=== PATIENT | male | born 1980 | race Caucasian/White ===

== ENCOUNTER 2023-06-26 08:24 | Emergency (ER) | payer OTHER ==
[2023-06-26 09:43] LABS: CORONAVIRUS COVID-19 NAA NEGATIVE (NEGATIVE); INFLUENZA A NAA NEGATIVE (NEGATIVE); INFLUENZA B NAA NEGATIVE (NEGATIVE); RESPIRATORY SYNCYTIAL VIR NAA NEGATIVE (NEGATIVE)
[2023-06-26] MEDS: Dexamethasone 10 MG/ML SDV PO ONE (09:59)
== END 2023-06-26 10:17 | disposition home or self-care (01) ==
LOC: MW.ED 08:24
DX: J02.8 Acute pharyngitis due to other specified organisms (principal); Z88.8 Allergy status to other drugs, medicaments and biological substances
CPT/HCPCS: 0241U; 87651; 99283; J8540

== ENCOUNTER 2024-05-09 20:40 | Emergency (ER) | payer OTHER ==
[2024-05-09] MEDS ORDERED: Sodium Chloride 0.9% 20 ML SDV IV PRN (21:16)
[2024-05-09] MEDS: Ketorolac 30 MG/ML SDV IVPUSH ONE (21:29)
[2024-05-09] MEDS: Sodium Chloride 0.9% 10 ML Syringe FLUSH PRN (21:31)
[2024-05-09] MEDS: Sodium Chloride 0.9% 2.5 ML Syringe FLUSH PRN (21:31)
[2024-05-09 21:36] LABS: HEMATOCRIT 42.3 % (42.0-52.0); HEMOGLOBIN 14.8 g/dL (14.0-18.0); MEAN CORPUSCULAR HEMOGLOBIN 30.5 pg (28.0-32.0); MEAN PLATELET VOLUME 9.9 fL (9.4-12.4); PLATELET COUNT,PLT 270 K/uL (150-400); RED BLOOD CELL COUNT 4.86 M/uL (4.52-5.90); WHITE BLOOD CELL COUNT,WBC 15.72 K/uL (3.9-11.3)
[2024-05-09 21:51] LABS: LYMPHOCYTES ABSOLUTE MAN 1.73 K/uL (1.00-4.80); LYMPHOCYTES PERCENT MAN 11 % (24-44); MONOCYTES ABSOLUTE MAN 1.26 K/uL (0.00-0.80); MONOCYTES PERCENT MAN 8 % (0-8); SEG NEUTROPHILS ABSOLUTE MAN 12.73 K/uL (1.80-7.70); SEG NEUTROPHILS PERCENT MAN 81 % (41-71)
[2024-05-09 21:54] LABS: CALCIUM 8.9 mg/dL (8.5-10.1); CARBON DIOXIDE,CO2 27.8 mmol/L (21.0-32.0); CREATININE 1.4 mg/dL (0.8-1.3); EST CRCL DRUG DOSING (CG) 66.5 mL/min; POTASSIUM,K 4.5 mmol/L (3.5-5.1)
[2024-05-09] MEDS: metroNIDAZOLE 250 MG Tab PO ONE (22:47)
[2024-05-09] MEDS: Ciprofloxacin 500 MG Tab PO SCH (22:48)
== END 2024-05-09 23:15 | disposition home or self-care (01) ==
LOC: MW.ED 20:40
DX: K57.92 Diverticulitis of intestine, part unspecified, without perforation or abscess without bleeding (principal); I10 Essential (primary) hypertension; E66.9 Obesity, unspecified; Z68.41 Body mass index [BMI] 40.0-44.9, adult; Z90.89 Acquired absence of other organs; Z88.8 Allergy status to other drugs, medicaments and biological substances; Z79.899 Other long term (current) drug therapy
CPT/HCPCS: 36415; 80048; 83605; 85025; 96374; 99284; A9270; J1885; 99283